=== PATIENT | female | born 1945 | race Caucasian/White ===

== ENCOUNTER 2023-09-08 05:52 | Day surgery (SDC) | payer MEDICARE, BC, SELFPAY ==
[2023-08-25 12:43] VITALS: BMI 34.0
--- NOTE | 2023-08-25 14:48 | HPS.HSE ---
Family Physician
-
Family Physician: INTERVIEWE UNKNOWN - PT NOT
Chief Complaint
-
Persistent atrial fibrillation.
History of Present Illness
The patient is a 77 year old female presenting today for persistent atrial fibrillation. The patient reports shortness of breath, most notably with exertion, and fatigue likely secondary to this diagnosis. She is on current pharmacological
therapy with Amiodarone and Metoprolol Succinate. She is compliant with Eliquis for oral anticoagulation due to her CHADS-VASc of 5. She notes that her current symptoms often interfere with her activities of daily living and overall impact her
quality of life. She is interested in pursuing pulmonary vein isolation for further arrhythmia management. She denies any current complaints today such as chest pain, shortness of breath at rest, palpitations, nausea, vomiting, diarrhea,
lightheadedness, dizziness, cough, sore throat, or fever.
Medical History
Past Medical History
Past Medical History: Reports Other
Additional Past Medical History:
1. Persistent atrial fibrillation, pharmacological therapy with Metoprolol Succinate and Amiodarone, oral anticoagulation with Eliquis.
2. Hypertension.
3. Hyperlipidemia.
4. Sinus bradycardia, asymptomatic.
5. Congestive heart failure, preserved ejection fraction.
6. Mild mitral regurgitation.
7. Mild tricuspid regurgitation.
8. 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
9. Obstructive sleep apnea, non-compliant with device.
10. Chronic kidney disease stage 3.
11. GERD.
12. Previous GI bleed while on Eliquis.
13. Nephrolithiasis.
14. Chronic low back pain.
15. Osteoarthritis, status post right total knee arthroplasty 2016.
16. Multinodular goiter.
17. Squamous cell carcinoma, status post excision x2.
18. Eczema.
19. Insomnia.
20. Hearing impairment bilaterally.
21. Poor historian.
22. Mildly elevated transaminases.
23. Obesity, BMI 34.0.
24. Remote history of infrequent tobacco abuse.
Past Surgical History: Reports Other
Additional Past Surgical History:
1. Transesophageal echocardiogram.
2. Right total knee arthroplasty.
3. Cholecystectomy.
4. Bilateral cataract extraction.
5. Colonoscopy x4.
Social History
Tobacco: Former Smoker (She is a former <1 pack per day cigarette smoker who quit tobacco altogether at 24 years of age. )
Alcohol: None (She reports no alcohol since April 2023. )
Personal:
Living: Other (She lives with her spouse in a 3 story home. )
Family History
Family History: Not pertinent
Allergies / Home Medications
Allergy/Medication List:
Home medications:
1. Amiodarone 200 mg p.o. daily.
2. Apixaban 5 mg p.o. twice a day.
3. Famotidine 20 mg p.o. twice a day.
4. Furosemide 40 mg p.o. daily.
5. Melatonin 5 mg p.o. at bedtime as needed.
6. Metoprolol Succinate 25 mg p.o. twice a day.
7. Potassium chloride 40 meq p.o. daily.
8. Rosuvastatin 20 mg p.o. every evening.
Allergies: Diltiazem.
Review of Systems
-
A 12 point ROS was completed and negative except as noted: Yes
Physical Exam
Vital Signs
Blood pressure 124/51. Heart rate 46. Respirations 18. Pulse ox 95% on room air.
Height 5 feet, 4 inches. Weight 89.8 kg. BMI 34.0.
Physical Exam
General: Well Developed, Well Nourished and No Apparent Distress
HEENT: NormoCephalic, Moist mucous membranes, Atraumatic and PERRLA
Respiratory: Clear
Cardiac: Bradycardia
GI: Soft, Non Tender, Non Distended and Other (Obese. )
Musculoskeletal: Normal Gait & Station
Skin: Warm and Dry
Neuro: AO x 3 and Nonfocal/grossly intact
Laboratory Results
-
DIAGNOSTIC STUDIES as of 08/25/2023: White blood cell count 6.0. Hemoglobin 13.7. Platelet count 177,000. PT 16.1. INR 1.29. Sodium 136. Potassium 4.6. BUN 19. Creatinine 1.1. Glucose 93. Calcium 9.5. Magnesium 2.0. AST 41. ALT 37. Albumin 4.5.
Blood type O positive.
EKG 08/25/2023: Sinus bradycardia. Nonspecific T wave abnormality.
Chest CT 08/25/2023: Short segment common vestibule for the left superior and inferior pulmonary veins, fairly commonly seen and considered normal variant. No evidence for left atrial thrombus. 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
along the left anterior margin measuring up to 1.8 cm. Diffuse thyroid goiter causing mild tracheal narrowing.
Transesophageal echocardiogram 06/28/2023: Normal left ventricular size and systolic function with normal regional wall motion. Mild concentric left ventricular hypertrophy. Left ventricular ejection fraction visually estimated 55%. Mildly dilated
right ventricle with low normal RV systolic function. Biatrial dilatation. Left atrial appendage is normal in size. No spontaneous echo contrast seen in the left atrial appendage. No thrombus detected in the left atrial appendage.�Left atrial
appendage morphology windsock.�Left atrial appendage measurements at 45 degrees: Ostial diameter 1.11 cm.�Depth 1.9 cm.�Left atrial appendage measurements at 90 degrees: Ostial diameter 1.05 cm.�Depth 2 cm.�Left atrial appendage measurement at 137
degrees: Ostial diameter 0.898 cm, depth 2 cm.�Thickened mitral valve leaflets with mild mitral regurgitation. Trileaflet sclerotic aortic valve with trace aortic regurgitation. Mild tricuspid regurgitation. Normal aortic root and proximal ascending
aorta size.
Impression/Plan
-
IMPRESSION/PLAN:
1. Persistent atrial fibrillation: The patient is in need of pulmonary vein isolation with Dr. Daniel Dean on 09/08/2023. The benefits and risks of the procedure have been explained to the patient. The patient understands these risks and wishes to
proceed. She is aware to hold her Eliquis the night before and morning of her procedure. She will not take any medications the morning of her procedure.
2. Multinodular goiter: This finding was re-demonstrated on her most recent chest CT. The patient reports she previously followed Dr. Morteza Rodriguez of Endocrinology for this condition. Her last known thyroid ultrasound was in October 2017. A copy of her
chest CT results will be sent to her primary care physician, Dr. Octavio Campos. Given how long ago her last thyroid ultrasound was, she likely is due for a repeat ultrasound in the near future.
[2023-09-08] VITALS (16 sets, daily range): BP systolic 97–140; BP diastolic 45–74; BMI 33.3
[2023-09-08] MEDS: TYLENOL 1000 MG PO (07:14)
--- NOTE | 2023-09-08 08:11 | ITS.CL.ABL ---
Toolroom Attendant - Ablation
Ablation
Procedure Report:
Primary Physiologist: Trever Aggarwal MD
Procedure Date: 09/08/2023
Patient History:
Patient is a pleasant 77-year-old female with a past medical history significant for obesity, dyslipidemia, paroxysmal atrial fibrillation, GERD, heart failure preserved ejection fraction (previously reduced EF), history of GI bleed.
See H&P for complete details.
Indication:
Symptomatic paroxysmal atrial fibrillation
Early recurrence on antiarrhythmic medical therapy
Prior heart failure with reduced ejection fraction now recovered
Arrhythmia Specific History:
Prior Medical Therapies for Rate and Rhythm Control:
X Beta-bisi
[ ] Calcium channel-bisi
X Amiodarone
[ ] Dronederone
[ ] Sotalol
[ ] Flecainide
[ ] Dofetilide
[ ] Options limited by bradycardia
[ ] Options limited by comorbid renal disease
Prior Procedural Therapies for AF/AFL:
[ ] Cardioversion
[ ] Pulmonary Vein Isolation
[ ] Posterior Wall Isolation
[ ] Additional lines (Specify)
[ ] Surgical Quintero-MAZE or PVI (Specify)
Procedure Performed:
X AF ablation procedure (88414) -- includes LA/CS pacing, trans-septal, 3D mapping, + ICE
[ ] +IV drug (02018)
[ ] +Other Arrhythmia (80663)
[ ] +Other AF Line/ablation (39960)
Risks and expected recovery has been explained in detail. Alternative options have been explored, and in a shared-decision making fashion we have decided that this was the most appropriate procedure.
Method
NPO status confirmed. Grounding pad applied. Defibrillator pads applied. Continuous surface ECG, pulse oximetry, and blood pressure were monitored. Procedure was performed under general anesthesia, with anesthesia services.
Both groins were clipped, prepped with Chloraprep, and draped in sterile fashion. Time out was called. Local anesthesia administered with bupivacaine. The right and left femoral veins were accessed for catheter placement, using ultrasound guidance,
micro-puncture needle/wire, and modified seldinger technique. 3 sheaths were placed. The following catheters were used:
[ ] Tacticath SE (D/F Curve) ablation catheter
X Viewflex 9Fr ICE catheter
X Inquiry decapolar 6Fr diagnostic catheter
[ ] CRD Hex 6Fr
[ ] Arctic Front Advance Cryoballoon ([ ]28mm[ ]23mm)
[ ] Achieve Advance mapping catheter ([ ]15mm[ ]20mm)
X FlexCath Contour 10 Fr with PulseSelect PFA Catheter
X Advisor HD Grid Mapping Catheter, SE
[ ] AcusEncentuate AcuNav 8 Fr ICE catheter
[ ]Other: [ ]
Intracardiac ultrasound (ICE) was carefully advanced into the right atrium to guide sheath placement over a J-wire, catheter placement, guide trans-septal puncture, identify potential complications, identify anatomic structures and ensure proper
contact between ablation catheter and tissue.
Heparin was given prior to trans-septal puncture. Heparin was given to achieve and maintain a target ACT of 300-400 seconds throughout the procedure.
Trans-septal access was performed under ICE guidance. The trans-septal puncture was performed with a SafeSept wire through a Brockenbrough needle assembly through the non-steerable sheath. The wire was visualized as it entered the LSPV and system
advanced under ICE guidance and fluoroscopy into the LA. The Brockenbrough needle assembly, SafeSept wire and sheath dilator were removed under negative pressure. Protrack pigtail wire was advanced under fluoroscopic and ICE guidance into the LA.
Non-steerable sheath was removed and steerable sheath was advanced into the LA. LA pressure was measured and recorded.
ICE and 3D mapping was performed to identify relevant cardiac structures. A careful 3D map was created to assess for regions of low-voltage and abnormal electrogram signals using HD grid mapping catheter and PulseSelect catheter. Patient was noted
to have a left common pulmonary vein by CT scan and confirmed/mapped with HD grid catheter. Additional mapping was performed as outlined below.
Prior to ablation, glycopyrrolate was provided. PulseSelect catheter was advanced over J-wire to the ostium of each vein. Pulmonary vein isolation was performed with ostial and antral lesions in a circumferential manner. Contact was visualized via
EAM, ICE, fluoroscopy, and EGM signals. Following completion of ablation lesions, a post-ablation voltage/activation map was performed in sinus rhythm. Entrance and exit block were confirmed for each vein.
Catheter and sheath were removed from the left atrium and post-ablation intracardiac echo evaluation was consistent with pre-ablation with no changes and no pericardial effusion and there is no left atrial thrombus or left ventricle thrombus seen.
Electrophysiology study was performed. Hemostasis was obtained with figure of 8 stitch for each groin and with manual pressure. Protamine was used for reversal.
Estimated Blood Loss
5-10 mL
Complications
None
Fluoroscopy: 11 minutes; 32.82 mGy; DAP 4.05
Baseline Intervals:
Rhythm: SR
OR: 159 ms
QRS: 92 ms
QT: 563 ms
QTc: 474 ms
A-A: 1413 ms
R-R: 1413 ms
Post-Procedure Intervals:
OR: 170 ms
QRS: 88 ms
QT: 496 ms
QTc: 490 ms
A-A: 1025 ms
R-R: 1025 ms
AVWB: 420 ms
AVNERP: 600/350 ms
Recommendations
- Bedrest with straight-leg precautions as ordered
- Admit with anticipate discharge home tomorrow after overnight observation
- Resume home medications as indicated
- Ok to resume anticoagulation tonight if patient and groin sites stable
- PPI daily for 30 days
- Plan for follow-up in office with primary fishing instructor in 3 mo
- Plan to discontinue amiodarone at 3 mo visit
Daniel Dean, DO
Clinical Cardiac Business Continuity Strategy Director
cc: Trever Aggarwal MD; Octavio Campos MD
[2023-09-08 08:53] LABS: ACT-LR - POC 261 Seconds (116-155)
[2023-09-08 09:09] LABS: ACT-LR - POC 321 Seconds (116-155)
[2023-09-08 09:33] LABS: ACT-LR - POC 313 Seconds (116-155)
[2023-09-08 09:57] LABS: ACT-LR - POC 360 Seconds (116-155)
[2023-09-08 10:29] LABS: ACT-LR - POC 200 Seconds (116-155)
[2023-09-08] MEDS: ANESTHETIC LOZENGE 1 LOZENGE PO ×2 (11:47→19:53)
--- NOTE | 2023-09-08 12:35 | PTCARENOTE ---
Rec'd report from Lucia at 1220; Rec'd pt from cardiac catheterization technologist at 1230. Pt AAOx3 w/no c/o CP or SOB. Pt advised of sutures being clipped at 1430 & bedrest status until 1530. Pt's VS stable. Pt reporting 'mild throat discomfort', ice chips given & PRN throat
lozenge administered as ordered. Pt SB w/HR in the 50's on telemetry monitoring. Pt w/call henao within reach & no addtl needs at this time. Plan of care ongoing.
--- NOTE | 2023-09-08 13:49 | CM ---
Reviewed chart. Met with and Mrs. Pandya to review discharge plans. She states prior to admission she resides with her spouse in a two story home without any steps to enter. She stats she has a full flight of steps to get to bedroom/full
bathroom. She states she has a powder room on the first floor. She states prior to admission she was independent with ambulation and adls. She states she does not have any DME in the home. She states she has a prescription plan and uses [facility]. The discharge plan is to return home with her spouse when medically stable.
[2023-09-08] MEDS: ELIQUIS 5 MG PO (15:55)
[2023-09-08] MEDS: LASIX 40 MG PO (15:55)
[2023-09-08] MEDS: TYLENOL 650 MG PO (15:55)
[2023-09-08] MEDS: KCL 40 MEQ PO (15:55)
[2023-09-08] MEDS: TOPROL XL 25 MG PO (19:53)
--- NOTE | 2023-09-08 22:14 | PTCARENOTE ---
Assumed care at 1900. Patient is AO x3. NSR, groin are soft, dressing CDI. Weak left pedal pulse and right pedal with Doppler. Assisted to the bathroom to void, D/C angelique, in chair now, call henao in reach
[2023-09-08] MEDS: PEPCID 20 MG PO (22:22)
[2023-09-08] MEDS: CRESTOR 20 MG PO (22:22)
[2023-09-09 03:10] VITALS: BMI 33.9
[2023-09-09 03:42] VITALS: BP 112/68
[2023-09-09 04:23] LABS: Hematocrit 35.4 % (37.0-47.0); Hemoglobin 11.7 g/dL (12.0-16.0); Mean Corp Hgb Conc. 33.1 g/dL (33.0-37.0); Mean Corpuscular Hgb 29.8 pg (27.0-31.0); Mean Corpuscular Volume 90.3 fL (81.0-99.0); Mean Platelet Volume 10.4 fL (7.4-10.4); Platelet Count 159 10^3/uL (130-400); Red Blood Cell Count 3.92 10^6/uL (4.20-5.40); Red Cell Dist. Width 17.5 % (11.5-14.5); White Blood Cell Count 8.8 10^3/uL (4.8-10.8)
[2023-09-09 04:43] LABS: Blood Urea Nitrogen 21 mg/dl (7-17); Calcium 9.3 mg/dl (8.4-10.2); Carbon Dioxide 24 mmol/L (22-30); Chloride 105 mmol/L (98-107); Estimated Creatinine Clearance 56 ml/min; Glucose 140 mg/dl (70-99); Magnesium 1.8 mg/dl (1.6-2.3); Potassium 4.3 mmol/L (3.5-5.1); Sodium 135 mmol/L (135-145); eGFR > 60.00
[2023-09-09 07:15] VITALS: BP 119/52
--- NOTE | 2023-09-09 08:13 | W.PN.CARDCBS ---
Today's Communication / Plan
-
post PVI
stable for d/c home
Impression / Plan
-
PCP: Octavio Campos MD
CDY: Trever England MD
Patient is a pleasant 77-year-old female with a past medical history significant for obesity, dyslipidemia, paroxysmal atrial fibrillation, GERD, heart failure preserved ejection fraction (previously reduced EF), history of GI bleed.
Impression:
Symptomatic paroxysmal Afib
post PFA PVI 09/08/23
bradycardia
HTN
HLD
GERD
CKD3b
Chronic HFpEF 55% (previously 35-40% recovered)
ABDI
Mild MR/TR
h/o GIB
Obesity
Plan:
post ablation feels good
tele SR/SB
groins stable
OAC Eliquis
Continue Amiodarone, Metoprolol xl 25mg decrease to daily with bradycardia
PPI x 30 days
Activity restrictions reviewed
f/u Dr. England in 1 mo
home today
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
Subjective
Date of Service: September 09, 2023
no cp, sob
Objective
Labs:
09/09/23 03:56
09/09/23 03:56
Labs
Hgb 11.7 g/dL (12.0-16.0) L 09/09/23 03:56
Hct 35.4 % (37.0-47.0) L 09/09/23 03:56
Plt Count 159 10^3/uL (130-400) 09/09/23 03:56
Sodium 135 mmol/L (135-145) 09/09/23 03:56
Potassium 4.3 mmol/L (3.5-5.1) 09/09/23 03:56
BUN 21 mg/dl (7-17) H 09/09/23 03:56
Creatinine 0.9 mg/dL (0.6-1.0) 09/09/23 03:56
Glucose 140 mg/dl (70-99) H 09/09/23 03:56
Vital Signs and I&O:
Vital Signs
Temp Pulse Resp BP Pulse Ox
97.6 F 60 20 119/52 97
09/09/23 07:12 09/09/23 07:45 09/09/23 07:12 09/09/23 07:15 09/09/23 07:12
Vital Signs
Temp Pulse Resp BP Pulse Ox
97.6 F 60 20 119/52 97
09/09/23 07:12 09/09/23 07:45 09/09/23 07:12 09/09/23 07:15 09/09/23 07:12
Intake & Output
09/07/23 09/08/23 09/09/23 09/10/23
06:59 06:59 06:59 06:59
Intake Total 2380 / 2380
Balance 2380 / 2380
Physical Exam
Physical Exam
NAD< AOX3
S1, S2, RRR
CTAB, non labored, diminished t/o
SNTND bsx4 obese
b/l groins c/d/i no HT, soft
[2023-09-09] MEDS: KCL 40 MEQ PO (09:10)
[2023-09-09] MEDS: ELIQUIS 5 MG PO (09:10)
[2023-09-09] MEDS: TOPROL XL 25 MG PO (09:11)
[2023-09-09] MEDS: LASIX 40 MG PO (09:11)
[2023-09-09] MEDS: PACERONE 200 MG PO (09:11)
[2023-09-09] MEDS: PROTONIX 40 MG PO (09:11)
--- NOTE | 2023-09-09 09:30 | W.DS.TRANS ---
DC Summary - Lawn Mower Operator
-
Discharge Instructions:
Discharge Diagnosis/Procedures AFib, s/p ablation
Diet Low Cholesterol
Driving Restrictions No driving for 24 hours
Instructions:
Stand-Alone Forms: DC Instructions- Cath/EP Lab
Changes to Home Medications: Yes
Discharge Medications:
DC Medications w/original date entered in [facility]
famotidine 20 mg tablet 20 mg PO BID Gastrointestinal Issue 06/22/23
melatonin 5 mg tablet 5 mg PO HS PRN sleep 06/22/23
rosuvastatin 20 mg tablet 20 mg PO HS High Cholesterol 06/22/23
amiodarone 200 mg tablet (Pacerone) 200 mg PO DAILY #30 tabs 06/28/23
apixaban 5 mg tablet (Eliquis) 5 mg PO BID #60 tabs 06/28/23
potassium chloride 20 mEq tablet,extended release(part/cryst) 40 meq (2 x 20 mEq) PO DAILY #30 tabs 06/28/23
furosemide 40 mg tablet 40 mg PO DAILY 08/19/23
metoprolol succinate 25 mg tablet,extended release 24 hr 25 mg PO DAILY #0 tabs 09/09/23
pantoprazole 40 mg tablet,delayed release 40 mg PO DAILY #30 tabs 09/09/23
Home Medication Changes
decrease metoprolol to daily
Pending Results: No
--- NOTE | 2023-09-09 10:17 | PTCARENOTE ---
Received patient this morning resting comfortably oob in the chair. Bilateral groin sites are dry and intact, pulses palpable. Patient seen by cardiology and is ok for discharge. Reviewed discharge instructions with the patient, her and her
daughter and they understand instructions. Patient discharged home with her family.
== END 2023-09-09 10:42 | disposition home or self-care (01) ==
LOC: CATH 05:52
PROVIDERS: Nurse Practitioner; ATTENDING PHYSICIAN Internal Medicine Cardiovascular Disease; FAMILY PHYSICIAN Internal Medicine; OTHER PHYSICIAN Internal Medicine Cardiovascular Disease
DX: I48.19 Other persistent atrial fibrillation (principal); R06.02 Shortness of breath; I13.0 Hypertensive heart and chronic kidney disease with heart failure and stage 1 through stage 4 chronic kidney disease, or unspecified chronic kidney disease; I50.32 Chronic diastolic (congestive) heart failure; N18.32 Chronic kidney disease, stage 3b; E78.5 Hyperlipidemia, unspecified; I08.1 Rheumatic disorders of both mitral and tricuspid valves; I37.8 Other nonrheumatic pulmonary valve disorders; M54.50 Low back pain, unspecified; G89.29 Other chronic pain; M17.11 Unilateral primary osteoarthritis, right knee; E04.2 Nontoxic multinodular goiter; H91.8X3 Other specified hearing loss, bilateral; L30.9 Dermatitis, unspecified; G47.00 Insomnia, unspecified; R74.01 Elevation of levels of liver transaminase levels; E66.9 Obesity, unspecified; Z68.34 Body mass index [BMI] 34.0-34.9, adult; K21.9 Gastro-esophageal reflux disease without esophagitis; G47.33 Obstructive sleep apnea (adult) (pediatric); Z87.891 Personal history of nicotine dependence; Z79.899 Other long term (current) drug therapy; Z79.01 Long term (current) use of anticoagulants
CPT/HCPCS: C1732; C1894; C1769; C1893; C1759; 76937; 80048; 83735; 85027; 85347; 86900; 86901; 93005; 93656

== ENCOUNTER → 2024-02-16 13:48 | Outpatient (REF) | payer MEDICARE, BC, SELFPAY | LOC: HWRCS 13:48 | PROVIDERS: ATTENDING PHYSICIAN Internal Medicine Cardiovascular Disease; FAMILY PHYSICIAN Internal Medicine | DX: I50.32 Chronic diastolic (congestive) heart failure (principal) | CPT/HCPCS: 93306 ==

== ENCOUNTER → 2025-02-14 11:12 | Outpatient (REF) | payer MEDICARE, BC, SELFPAY | LOC: HWRCS 11:12 | PROVIDERS: ATTENDING PHYSICIAN Internal Medicine Cardiovascular Disease; FAMILY PHYSICIAN Internal Medicine | DX: I50.32 Chronic diastolic (congestive) heart failure (principal) | CPT/HCPCS: 93306 ==